=== PATIENT | female | born 1990 ===

== ENCOUNTER 2021-10-05 23:13 | Emergency (ER) | payer SELFPAY ==
[2021-10-06] MEDS ORDERED: Alteplase 81 MG in Premix Bag 1 BAG IV ONE (00:09)
[2021-10-06 00:44] LABS: BLOOD UREA NITROGEN,BUN 11 mg/dL (7.0-18.0); CARBON DIOXIDE,CO2 25.4 mmol/L (21.0-32.0); CHLORIDE,CL 102 mmol/L (98-107); GLUCOSE RANDOM 119 mg/dL (74-106); SODIUM,NA 137 mmol/L (136-145)
== END 2021-10-06 02:54 ==
LOC: MW.ED 23:13
DX: I63.9 Cerebral infarction, unspecified (principal); Z20.822 Contact with and (suspected) exposure to COVID-19; Z88.0 Allergy status to penicillin; Z88.2 Allergy status to sulfonamides; Z88.8 Allergy status to other drugs, medicaments and biological substances
CPT/HCPCS: 36415; 70450; 70450-26; 80053; 80305-QW; 80307; 81003; 82947; 83605; 83735; 84484; 84703; 85025; 85610; 85730; 93005; 99285-25; U0002